=== PATIENT | female | born 1970 | race Caucasian/White ===

== ENCOUNTER 2020-02-09 02:53 | Emergency (ER) | payer MEDICAID ==
[~2020-02-09] VITALS: Ht 157.5 cm; Wt 86.2 kg
[2020-02-09 02:59] VITALS: BP 134/77
--- NOTE | 2020-02-09 03:05 | NUR ---
PT AMBUALTED TO BED 11 WITH STEADY GAIT. UA IS PROVIDED.
--- NOTE | 2020-02-09 03:05 | NUR ---
PT AMBUALTED TO RESTROOM WITH STEADY GAIT.
--- NOTE | 2020-02-09 03:10 | NUR ---
PT 50 Y/O FEMALE BIB SELF FOR C/O R FLANK PAIN RADIATING TO RUQ X 3 DAYS. PT STATES PAIN HAS NOT BEEN RELIVED BBY OTC PAIN MEDICATION. PT DENIES N/V/D. PT STATES PAIN IS 9/10, SHARP, AND CONTINOUS. PT DENIES PAINFUL URINATION. ABD IS SOFT, ROUND, AND NON TENDER. BS PRESENT X4. AFEBIRILE. NO COUGH, SOB NOTED. SKIN IS WARM AND DRY TO TOUCH. SIDERAIL UP X1. MEDHX: PT DENIES ALLERGIES: NKA Addendum: 02/09/20 at 0321 by [email or web address] *L SIDED FLANK PAIN RADIATING TO LUQ
--- NOTE | 2020-02-09 03:22 | NUR ---
ERMD AT BEDSIDE.
[2020-02-09] MEDS ORDERED: NACL 0.9% 1,000 ML IV SCH (03:24)
[2020-02-09] MEDS ORDERED: KETOROLAC 30 MG/ML VIAL IVP ONE (03:25)
--- NOTE | 2020-02-09 03:33 | NUR ---
PT TAKEN TO CT VIA W/C.
--- NOTE | 2020-02-09 03:48 | NUR ---
PT RETURNED FROM CT TO BED 11 VIA W/C.
[2020-02-09] MEDS ORDERED: ONDANSETRON 4 MG/2 ML VIAL IVP ONE (04:15)
[2020-02-09] MEDS ORDERED: MORPHINE SULFATE 4 MG/ML SYR IVP ONE ×3 (04:15→06:00)
[2020-02-09 05:37] LABS: APPEARANCE,URINE CLEAR (CLEAR); BILIRUBIN,URINE NEGATIVE (NEGATIVE); BLOOD, URINE 3+ (NEGATIVE); COLOR,URINE YELLOW (YELLOW); LEUKOCYTE ESTERASE ,URINE NEGATIVE (NEGATIVE); NITRITE, URINE NEGATIVE (NEGATIVE); UGLUCOSE NEGATIVE (NEGATIVE)
--- NOTE | 2020-02-09 05:40 | NUR ---
COVID SWAB COLLECTED AND WALKED TO LAB.
[2020-02-09 05:49] LABS: BASOPHILS % (AUTO) 0.3 % (0.0-2.0); EOSINOPHILS # (AUTO) 0.2 K/uL (0-0.4); EOSINOPHILS % (AUTO) 2.2 % (0.0-4.0); HEMATOCRIT 41.1 % (36-48); HEMOGLOBIN 13.4 g/dL (12.0-16.0); LYMPHOCYTES # (AUTO) 1.4 K/uL (2.5-16.5); LYMPHOCYTES % (AUTO) 14.6 % (20.5-51.1); MEAN CORPUSCULAR HEMOGLOBIN 30 pg (27-31); MEAN CORPUSCULAR HGB CONC 33 g/dL (33-37); MEAN CORPUSCULAR VOLUME 91.4 fL (80-94); MONOCYTES # (AUTO) 0.5 K/uL (0.8-1.0); MONOCYTES % (AUTO) 5.2 % (1.7-9.3); NEUTROPHILS # (AUTO) 7.5 K/uL (1.8-7.7); NEUTROPHILS % (AUTO) 77.7 % (42.2-75.2); PLATELET COUNT (AUTO) 392 K/uL (140-450); RED CELL DISTRIBUTION WIDTH 13.2 % (11.6-13.7); WHITE BLOOD COUNT (AUTO) 9.6 K/uL (4.8-10.8)
[2020-02-09 06:00] LABS: ALBUMIN 3.7 g/dL (3.4-5.0); ANION GAP 15.4 (8-16); CARBON DIOXIDE 27.6 mmol/L (21-32); CREATININE 0.9 mg/dL (0.6-1.3); TOTAL BILIRUBIN 0.4 mg/dL (0.0-1.0)
[2020-02-09 06:06] LABS: WBC,URINE 0-5 /HPF (0-5)
--- NOTE | 2020-02-09 06:15 | NUR ---
PT REFUSED ANOTHER DOSE OF MORPHINE 4MG , PT STATES "SHE DOESN'T WANT TOO MUCH PAIN MEDICATION." DR. WRIGHT MADE AWARE.
[2020-02-09 06:25] VITALS: BP 121/62
--- NOTE | 2020-02-09 06:25 | NUR ---
Patient discharged with v/s stable. Written and verbal after care instructions given and explained. Patient alert, oriented and verbalized understanding of instructions. Ambulatory with steady gait. All questions addressed prior to discharge. ID band removed. Patient advised to follow up with PMD. Rx of FLOMAX, MOTRIN 800MG, NORCO given. Patient educated on indication of medication including possible reaction and side effects. Opportunity to ask questions provided and answered.
--- NOTE | 2020-02-11 20:09 | NUR ---
COVID ORALPHARYNGEAL ROUTE RESULTS: POSITIVE.
== END 2020-02-09 06:25 | disposition home or self-care (01) ==
LOC: MED 02:53
DX: U07.1 COVID-19 (principal); R10.9 Unspecified abdominal pain; N20.0 Calculus of kidney; Z90.49 Acquired absence of other specified parts of digestive tract
CPT/HCPCS: 36415; 74176; 80053; 81001; 81025; 83690; 85025; 96374; 96375; 96376; 99284; J1885; J2270; J2405; U0003; J7030

== ENCOUNTER 2020-03-05 17:28 | Emergency (ER) | payer MEDICAID ==
[~2020-03-05] VITALS: Ht 157.5 cm; Wt 84.8 kg
[2020-03-05 17:33] VITALS: BP 126/74
--- NOTE | 2020-03-05 17:35 | NUR ---
PT AMB TO BED 6.
--- NOTE | 2020-03-05 17:40 | NUR ---
50 Y/O FEMALE C/O LOW BACK PAIN X4 DAYS + DIARRHEA X2 DAYS. PT DENIES ANY RECENT TRAUMA OR INJURY. DENIES DYSURIA, URINARY FREQUENCY. PT DENIES ANY N/V. DENIES WEAKNESS/LIGHTHEADEDNESS AT THIS TIME. NO PMH NKA
[2020-03-05 18:01] VITALS: BP 126/74
--- NOTE | 2020-03-05 18:01 | NUR ---
Patient discharged with v/s stable. Written and verbal after care instructions given and explained. Patient alert, oriented and verbalized understanding of instructions. Ambulatory with steady gait. All questions addressed prior to discharge. ID band removed. Patient advised to follow up with PMD. Rx of IMMODIUM, BACTRIM, TYLENOL given. Patient educated on indication of medication including possible reaction and side effects. Opportunity to ask questions provided and answered.
== END 2020-03-05 18:01 | disposition home or self-care (01) ==
LOC: MED 17:28
DX: N39.0 Urinary tract infection, site not specified (principal); R19.7 Diarrhea, unspecified; Z90.49 Acquired absence of other specified parts of digestive tract
CPT/HCPCS: 81002; 81025; 99283

== ENCOUNTER 2022-09-25 15:12 | Emergency (ER) | payer BC ==
[~2022-09-25] VITALS: Ht 157.5 cm; Wt 88.0 kg
[2022-09-25 15:19] VITALS: BP 116/76
[2022-09-25] MEDS ORDERED: KETOROLAC 30 MG/ML VIAL IM ONE (16:00)
--- NOTE | 2022-09-25 16:00 | NUR ---
52/F PRESENTS TO ED WITH C/O LEFT KNEE PAIN X4 DAYS, DENIES RECENT INJURY OR TRAUMA, REPORTS TAKING IBUPROFEN WITH MILD RELIEF.
[2022-09-25] MEDS ORDERED: KETOROLAC 30 MG/ML VIAL ONE (17:40)
[2022-09-25] MEDS ORDERED: ACET-8905 PO (17:45)
[2022-09-25] MEDS ORDERED: IBUP-2213 PO (17:45)
[2022-09-25 18:00] VITALS: BP 118/59
--- NOTE | 2022-09-25 18:00 | NUR ---
Patient discharged with v/s stable. Written and verbal after care instructions ABOUT KNEE SPRAIN given and explained. Patient alert, oriented and verbalized understanding of instructions. Ambulatory with steady gait. All questions addressed prior to discharge. ID band removed. Patient advised to follow up with PMD. Rx of NORCO 5-325 AND IBUPROFEN given. Patient educated on indication of medication including possible reaction and side effects. Opportunity to ask questions provided and answered.
== END 2022-09-25 18:00 | disposition home or self-care (01) ==
LOC: MED 15:12
DX: S83.92XA Sprain of unspecified site of left knee, initial encounter (principal); Z79.891 Long term (current) use of opiate analgesic; Z79.1 Long term (current) use of non-steroidal anti-inflammatories (NSAID); X58.XXXA Exposure to other specified factors, initial encounter; Y92.89 Other specified places as the place of occurrence of the external cause; Y93.89 Activity, other specified; Y99.8 Other external cause status
CPT/HCPCS: 73562; 96372; 99283; J1885